=== PATIENT | female | born 1955 | race Caucasian/White ===

== ENCOUNTER → 2016-07-17 | Outpatient (CLI) | payer OTHER ==
[2016-07-17 12:20] LABS: Basophils # (A) 0.1 k/uL (0-0.2); Basophils % (A) 1 %; CH 31.8; CHCM 33.9; Eosinophils # (A) 0.3 k/uL (0-0.7); Eosinophils % (A) 2 %; HCT 45.1 % (34.0-46.0); HDW 2.91; HGB 14.8 gm/dL (11.4-16.0); Luc # (Auto) 0.28; Luc % (Auto) 2; Lymphocytes # (A) 1.4 k/uL (1.0-4.8); Lymphocytes % (A) 11 %; MCH 31.1 pg (25.0-35.0); MCHC 32.9 g/dL (31.0-37.0); MCV 94.7 fL (80.0-100.0); Mean Platelet Volume 9.2; Monocytes # (A) 0.7 k/uL (0-1.0); Monocytes % (A) 6 %; Neutrophils % (A) 79 %; RBC 4.77 m/uL (3.80-5.40); RDW 13.9 % (11.5-15.5); WBC 12.8 k/uL (3.8-10.6)
[2016-07-17 12:26] LABS: Appearance,Urine Cloudy (Clear); Bacteria,Urine Many /hpf; Bilirubin,Urine Negative (Negative); Glucose,Urine (UA) Negative (Negative); Ketones,Urine Negative (Negative); Leukocyte Esterase,Urine Large (Negative); Mucus,Urine Many /hpf; Nitrite,Urine Positive (Negative); Particle Count 23794; Protein,Urine Trace (Negative); Specific Gravity,Urine 1.022 (1.001-1.035); Squamous Epithelial Cell,Urine 2 /hpf (0-4); UA Billing (MACRO vs. MICRO) MICRO; Urobilinogen,Urine <2.0 mg/dL (<2.0); WBC,Urine 80 /hpf (0-5)
[2016-07-17 12:27] LABS: Partial Thromboplastin Time 24.1 sec (22.0-30.0); Prothrombin Time 10.6 sec (9.0-12.0)
[2016-07-17 12:50] LABS: ALT 21 U/L (9-52); AST 20 U/L (14-36); Alkaline Phosphatase 107 U/L (38-126); Anion Gap 13 mmol/L; Blood Urea Nitrogen 15 mg/dL (7-17); Calcium 9.1 mg/dL (8.4-10.2); Carbon Dioxide 25 mmol/L (22-30); Chloride 104 mmol/L (98-107); Cholesterol 169 mg/dL (<200); Creatine Kinase 41 U/L (30-135); Glucose 128 mg/dL (74-99); HDL Cholesterol 50 mg/dL (40-60); Non-African American GFR(MDRD) >60 (>60 ml/min/1.73 sqM); Potassium 4.6 mmol/L (3.5-5.1); Sodium 142 mmol/L (137-145); Total Bilirubin 0.6 mg/dL (0.2-1.3); Total Protein 7.4 g/dL (6.3-8.2); Triglycerides 111 mg/dL (<150); Uric Acid 6.1 mg/dL (3.7-7.4)
[2016-07-17 13:44] LABS: Hemoglobin A1C 5.1 % (4.2-6.1)
== END | disposition home or self-care (01) ==
LOC: LABPAT 11:12
PROVIDERS: ATTEND Orthopaedic Surgery
DX: Z01.818 Encounter for other preprocedural examination (principal); M89.9 Disorder of bone, unspecified; I10 Essential (primary) hypertension; E78.00 Pure hypercholesterolemia, unspecified; Z01.812 Encounter for preprocedural laboratory examination; J45.998 Other asthma
CPT/HCPCS: 80053; 80061; 81001; 82306; 82550; 83036; 84439; 84443; 84550; 85025; 85610; 85730; 87070

== ENCOUNTER 2016-07-27 07:21 | Inpatient (IN) | payer OTHER ==
[2016-07-23 12:16] VITALS: BMI 40.1
[~2016-07-27 07:21] MED LIST: ACETAMINOPHEN TAB 500 MG TAB PO ONE; CLINDAMYCIN 900 MG in DEXTROSE 5% IN WATER 50 ML IVPB ONE; DEXAMETHASONE SOD PHOSPHATE 10 MG/ML 1 ML VIAL IV ONE; HYDROmorphone 1 MG/ML 1 ML SYRINGE IVP PRN; MELOXICAM 7.5 MG TAB PO ONE; MIDAZOLAM 2 MG/2 ML VIAL IV PRN; ONDANSETRON 4 MG/2 ML VIAL IVP ONE; SCOPOLAMINE 1.5MG/72HR PATCH TRANSDERM ONE; TRANEXAMIC ACID 1,000 MG in SODIUM CHLORIDE 0.9% 100 ML IVPB ONE
[2016-07-27] MEDS ORDERED: LIDOCAINE 1% 20 ML VIAL (10MG/ML) FOR IV START INTRADERMA ONE (08:07)
[2016-07-27] MEDS: LACTATED RINGERS 1,000 ML IV SCH (08:09)
[2016-07-27] MEDS ORDERED: MIDAZOLAM 2 MG/2 ML VIAL IVP ONE (08:40)
[2016-07-27] MEDS ORDERED: fentaNYL (PF) 50 MCG/ML 2 ML AMP IV ONE (08:40)
[2016-07-27] MEDS ORDERED: ROPIVACAINE 1,100 MG, SODIUM CHLORIDE 0.9% 330 ML MISCELLANE PRN ×2 (10:05)
--- NOTE | 2016-07-27 10:08 | P.ONQ ---
Anesthesiology Proc Note - PNB - Peripheral Nerve Block Performed Left Adductor Canal Infusion Time Out Performed: Yes Indication: Acute Post-Operative Pain, Analgesia Specifically requested for management of pain by DrGayla: Joshua Nelson Sedation Type: Sedate with meaningful contact maintained Preparation: Sterile Prep Position: Supine Catheter Depth at Skin (cm): 8 Catheter: Indwelling Needle Types: On-Q Needle Size: 100mm (4") Needle Gauge: 20 Technique: Ultrasound Injectate: 0.5% Ropivacaine (see comment for volume) (20 cc) Blood Aspirated: No Pain Paresthesia on Injection Noted: No Resistance on Injection: Normal Events: Uneventful and Well Tolerated
[2016-07-27] MEDS: ROPIVACAINE 246.25 MG, EPINEPHrine 0.5 MG, KETOROLAC 30 MG, cloNIDine HCL/PF 80 MCG, WA... MISCELLANE ONE ×10 (10:25→11:09)
[2016-07-27] MEDS ORDERED: SODIUM CHLORIDE 0.9% 100 ML BAG ONE (10:35)
[2016-07-27] MEDS ORDERED: fentaNYL (PF) 50 MCG/ML 2 ML AMP ONE (10:35)
[2016-07-27] MEDS ORDERED: MIDAZOLAM 2 MG/2 ML VIAL ONE (10:35)
[2016-07-27] MEDS ORDERED: PROPOFOL 10 MG/ML 20 ML VIAL IV ONE (10:35)
[2016-07-27] MEDS ORDERED: TRANEXAMIC ACID 1,000 MG/10 ML VIAL ONE (10:35)
[2016-07-27] MEDS ORDERED: LACTATED RINGERS 1,000 ML IV ONE (11:28)
[2016-07-27] MEDS ORDERED: HYDROmorphone 1 MG/ML 1 ML SYRINGE IVP PRN ×3 (12:33)
[2016-07-27] MEDS ORDERED: NALOXONE 0.4 MG/ML 1 ML VIAL IV PRN (12:33)
[2016-07-27] MEDS ORDERED: hydrOXYzine PAMOATE 25 MG CAP PO PRN (12:33)
[2016-07-27] MEDS ORDERED: DIAZEPAM 5 MG TAB PO PRN ×2 (12:33)
[2016-07-27] MEDS ORDERED: ONDANSETRON 4 MG/2 ML VIAL IVP PRN (12:33)
[2016-07-27] MEDS ORDERED: HYDROcodone/APAP 5-325MG 1 EACH TAB PO PRN ×2 (12:33)
[2016-07-27] MEDS ORDERED: MAGNESIUM HYDROXIDE 2,400 MG/10 ML CUP PO PRN (12:33)
--- NOTE | 2016-07-27 13:13 | XR ---
EXAMINATION TYPE: XR knee limited LT DATE OF EXAM: 07/27/2016 1:08 PM CLINICAL HISTORY: Postoperative evaluation Two views of the left knee are submitted. Identified are changes of total knee arthroplasty with fem oral and tibial components appearing well seated. Postsurgical soft tissue changes are noted. Align ment is anatomic.
--- NOTE | 2016-07-27 16:46 | P.CONS ---
History of Present Illness - Reason for Consult Consult date: 07/27/16 medical management Requesting physician: Joshua Nelson - History of Present Illness this 61-year-old pleasant lady patient of Dr. Denton, she has underlying history of seasonal asthma mild intermittent, hypertension, ALLERGIC rhinitis, depression and hyperlipidemia admitted to the service of Dr. Nelson for a left total knee arthroplasty performed on 07/27/2016, patient's doing well without any difficulties, no posterior free pain and nausea vomiting, he does have an On-Q pain pump on board. Patient denies any chest pressure or shortness of breath. She is receiving Coumadin for DVT prophylaxis, instructions were also given for incentive spirometry use Review of Systems Constitutional: Reports as per HPI, Denies anorexia, Denies chills, Denies chronic headaches, Denies chronic pain, Denies daytime sleepiness, Denies fatigue, Denies fever, Denies lethargy, Denies malaise, Denies night sweats, Denies poor appetite, Denies sweats, Denies weakness, Denies weight gain, Denies weight loss Ears, nose, mouth and throat: Reports as per HPI, Denies ant. neck pain, Denies bleeding gums, Denies dental pain, Denies dysphagia, Denies epistaxis, Denies headache, Denies hoarseness, Denies mouth pain, Denies nasal congestion, Denies nasal discharge, Denies neck fullness/pressure, Denies neck lump, Denies nose pain, Denies odynophagia, Denies post-nasal drip, Denies sinus pain, Denies sinus pressure, Denies swelling in mouth, Denies swelling in throat, Denies sore throat, Denies vertigo, Denies voice changes Cardiovascular: Reports as per HPI, Denies chest pain, Denies claudication, Denies decreased exercise tolerance, Denies dyspnea on exertion, Denies edema, Denies high blood pressure, Denies irregular heart beat, Denies leg edema, Denies lightheadedness, Denies orthopnea, Denies palpitations, Denies paroxysmal nocturnal dyspnea, Denies phlebitis, Denies rapid heart beat, Denies shortness of breath, Denies syncope Respiratory: Reports as per HPI, Denies congestion, Denies cough, Denies cough with sputum, Denies dyspnea, Denies excessive sputum, Denies hemoptysis, Denies home oxygen, Denies pain, Denies pain on inspiration, Denies pleurisy, Denies respiratory infections, Denies sleep apnea, Denies snoring, Denies wheezing Gastrointestinal: Reports as per HPI, Denies abdominal pain, Denies belching, Denies bloating, Denies BRBPR, Denies change in bowel habits, Denies coffee ground emesis, Denies constipation, Denies diarrhea, Denies dyspepsia, Denies early satiety, Denies excessive gas, Denies heartburn, Denies hematemesis, Denies hematochezia, Denies indigestion, Denies jaundice, Denies lactose intolerance, Denies loss of appetite, Denies melena, Denies nausea, Denies vomiting Genitourinary: Reports as per HPI, Denies abnormal vaginal bleeding, Denies decreased libido, Denies difficulty conceiving, Denies difficulty voiding, Denies dysmenorrhea, Denies dyspareunia, Denies dysuria, Denies flank pain, Denies genital sores, Denies hematuria, Denies hot flashes, Denies incomplete emptying, Denies kidney stones, Denies menorrhagia, Denies mixed incontinence, Denies nocturia, Denies pelvic pain, Denies post void dribbling, Denies , Denies prolapse symptoms, Denies stress incontinence, Denies urge incontinence , Denies urgency, Denies urinary frequency, Denies vaginal discharge, Denies vaginal dryness, Denies vaginal itching, Denies vaginal odor Menstruation: Reports as per HPI, Denies amenorrhea, Denies amenorrhea on BC, Denies currently menstrual, Denies cycle < 21 days, Denies cycle > 35 days, Denies cycle variable, Denies menses 1-7 days, Denies menses 8 or > days, Denies menses variable, Denies period heavy, Denies period light, Denies period normal, Denies period spotting, Denies post hysterectomy, Denies postmenopausal , Denies premenarcheal Musculoskeletal: Reports as per HPI, Denies arm numbness/tingling, Denies atrophy, Denies fractures, Denies frequent falls, Denies gait dysfunction, Denies hot joints, Denies leg numbness/tingling, Denies limitation of motion, Denies loss of height, Denies low back pain, Denies morning stiffness, Denies muscle cramps, Denies muscle weakness, Denies myalgias, Denies neck pain, Denies neck stiffness, Denies prior amputations, Denies redness of joints, Denies shooting arm pain, Denies shooting leg pain Musculoskeletal: left: knee pain, bilateral: ankle pain, absent: ankle stiffness , ankle swelling, as per HPI, elbow pain, elbow stiffness, elbow swelling Integumentary: Reports as per HPI, Denies acne, Denies boils, Denies brittle nails, Denies change in hair/nails, Denies color changes, Denies darkening of skin, Denies depigmentation, Denies dryness, Denies foot/leg ulcers, Denies growths, Denies hirsutism, Denies lesions, Denies onychomycosis, Denies pruritus , Denies rash, Denies sores, Denies striae, Denies unusual bruising, Denies wounds Neurological: Reports as per HPI, Denies aphasia, Denies ataxia, Denies balance difficulties, Denies burning pain, Denies change in mentation, Denies change in smell/taste, Denies change in speech, Denies confusion, Denies convulsions, Denies double vision, Denies gait dysfunction, Denies head injury, Denies headaches, Denies hearing difficulties, Denies lack of coordination, Denies loss of vision, Denies memory loss, Denies migraines, Denies motor disturbance, Denies numbness, Denies paralysis, Denies paresthesias, Denies seizures, Denies sensory deficit, Denies spasticity, Denies syncope, Denies tic, Denies tingling , Denies transient paralysis, Denies tremors, Denies vertigo, Denies weakness, Denies visual changes Psychiatric: Reports as per HPI, Denies anhedonia, Denies anxiety, Denies anxiety attacks, Denies change in appetite, Denies change in libido, Denies change in sleep habits, Denies confusion, Denies depression, Denies difficulty concentrating, Denies disorientation, Denies hallucinations, Denies hopelessness , Denies hypersomnia, Denies insomnia, Denies irritability, Denies memory loss, Denies mood swings, Denies paranoia, Denies sadness/tearfulness, Denies sleep disturbances, Denies suicidal ideation Endocrine: Reports as per HPI, Denies cold intolerance, Denies deepening of the voice, Denies excessive sweating, Denies excessive thirst, Denies fatigue, Denies flushing, Denies heat intolerance, Denies high blood sugars, Denies increase in ring/shoe/hat size, Denies low blood sugars, Denies nocturia, Denies palpitations, Denies polydipsia, Denies polyphagia, Denies polyuria, Denies proptosis, Denies recent glucocorticoid use, Denies thyroid mass, Denies weight change Hematologic/Lymphatic: Reports as per HPI, Denies easy bleeding, Denies easy bruising, Denies lymphadenopathy, Denies lymphedema, Denies thrombophilia Allergic/Immunologic: Reports as per HPI, Denies allergic rhinitis, Denies anaphylaxis, Denies angioedema, Denies gluten intolerance, Denies persistent infections, Denies seasonal allergies, Denies urticaria, Denies wheezing Past Medical History Past Medical History: Asthma, Hypertension, Osteoarthritis (OA) Additional Past Medical History / Comment(s): ONLY HAS RIGHT KIDNEY History of Any Multi-Drug Resistant Organisms: None Reported Additional Past Surgical History / Comment(s): REMOVAL LEFT KIDNEY, RIGHT AND LEFT FOOT ,BILATERAL CARPAL RELEASE Past Anesthesia/Blood Transfusion Reactions: Motion Sickness Past Psychological History: Anxiety, Depression Smoking Status: Never smoker Past Alcohol Use History: None Reported Past Drug Use History: None Reported - Past Family History Sister(s) Family Medical History: Cancer, Coronary Artery Disease (CAD) Additional Family Medical History / Comment(s): BREAST CANCER Brother(s) Family Medical History: Cancer, Coronary Artery Disease (CAD) Additional Family Medical History / Comment(s): BRAIN CANCER Medications and Allergies Home Medications Medication Instructions Recorded Confirmed Type Nebivolol HCl [Bystolic] 20 mg PO DAILY 07/23/16 07/27/16 History Sertraline [Zoloft] 100 mg PO DAILY 07/23/16 07/27/16 History buPROPion HCL [Wellbutrin XL] 300 mg PO DAILY 07/23/16 07/27/16 History Ciprofloxacin HCl [Cipro] 250 mg PO Q12HR 07/24/16 07/27/16 History Allergies Allergy/AdvReac Type Severity Reaction Status Date / Time adhesive tape Allergy Rash/Hives Verified 07/23/16 11:14 [email or web address] [From Omnicef] Allergy Swelling, Verified 07/23/16 11:14 LIPS AND THROAT Physical Exam Vitals: Vital Signs Temp Pulse Resp BP Pulse Ox 07/27/16 15:45 82 115/64 07/27/16 15:30 86 116/58 07/27/16 15:15 91 130/68 07/27/16 15:00 86 116/55 07/27/16 14:45 86 106/59 07/27/16 14:30 84 114/50 07/27/16 14:15 87 113/57 07/27/16 14:00 84 126/61 07/27/16 13:45 98.0 F 85 17 116/56 96 07/27/16 13:19 84 16 107/57 96 07/27/16 13:04 82 16 112/61 95 07/27/16 12:51 82 16 110/60 95 07/27/16 12:36 97.4 F L 90 14 126/60 93 L 07/27/16 08:02 97.7 F 77 16 129/69 99 Intake and Output 07/27/16 07/27/16 07/27/16 06:59 14:59 22:59 Intake Total 2005 Output Total 50 Balance 1955 Intake: IV 2005 Output: Estimated Blood Loss 50 Other: Weight 116.12 kg Patient Weight 07/28/16 06:59 Weight 116.12 kg - Constitutional General appearance: no average body habitus, cooperative, no disheveled, no mild distress, no morbidly obese, no acute distress, obese, no severe distress, no thin - EENT Eyes: no abnormal pupil, anicteric sclerae, no disc margins sharp, no edentulous , no EOMI, no PERRLA, no fundus normal, no photophobia, dentition normal, no poor dentition, no ptosis, no scleral icterus, normal appearance ENT: no hard of hearing, hearing grossly normal, NA/AT, normal oropharynx, no other, no pharyngeal erythema, no thrush, no tonsillar exudates, no tonsillar swelling - Neck Neck: no lymphadenopathy, normal ROM, no other, no rigidity, no stridor, no thyromegaly - Cardiovascular Rhythm: regular Heart sounds: normal: S1, S2 Abnormal Heart Sounds: no systolic murmur, no diastolic murmur, no rub, no S3 Gallop, no S4 Gallop, no click, no other - Gastrointestinal General gastrointestinal: normal bowel sounds, soft - Integumentary Integumentary: normal, normal turgor - Neurologic Neurologic: CNII-XII intact - Musculoskeletal Musculoskeletal: gait normal, strength equal bilaterally - Psychiatric Psychiatric: A&O x's 3, appropriate affect, intact judgment & insight Assessment and Plan Plan: 1. Left total knee arthroplasty performed on 07/26/2016, patient's doing well clinically she is to receive Coumadin for DVT prophylaxis, incentive spirometry program, and narcotics for pain pain control,were anticipating her discharge to home with physical therapies with family members 2. Hypertension currently normotensive with slight fluctuation, patient is on by bystolic 20 mg daily 3. ALLERGIC rhinitis stable 4. Depression on Wellbutrin and Zoloft no changes were made 5. BMI of 40 6 Hyperlipidemia not on any medications DVT and GI luminaryprophylaxis on Coumadin Pepcid ,bowel regimen for constipation, incentive spirometry thank you Dr. Nelson in allowing us to precipitate a careof your Patient, we are going to follow him during this current hospital stay. Recommendations made this treatment based on his clinical progress, patient's clinically stable.
[2016-07-27] MEDS: CLINDAMYCIN 900 MG in DEXTROSE 5% IN WATER 50 ML IVPB SCH ×4 (17:37→23:21)
[2016-07-27] MEDS ORDERED: WARFARIN 5 MG TAB PO ONE (18:00)
--- NOTE | 2016-07-27 19:07 | P.OP ---
Date of Procedure: 07/27/16 Preoperative Diagnosis: Severe osteoarthritis left knee Postoperative Diagnosis: Severe osteoarthritis left knee Procedure(s) Performed: Left total knee arthroplasty Implants: Gong [employer]hew Oxinium femoral component size 5 narrow, left G[employer]hew Nathaly II left nonporous tibial baseplate size 3 G[employer]hew size 9 mm Legion XLPE dished articular insert, size 3-4 [employer] Nathaly II resurfacing patellar component, 32 mm All components were cemented using Raina bone cement.. The articulation is ceramic on polyethylene. Anesthesia: spinal Surgeon: Joshua Nelson Corporate Recruiter #1: Jazmyn Bridges Estimated Blood Loss (ml): 50 Pathology: other (Bone and cartilage) Condition: stable Disposition: PACU Indications for Procedure: After failure of conservative treatment we discussed the surgical and nonsurgical treatment options at length. Patient wishes to proceed with a total knee arthroplasty. Complications specific to this procedure were discussed at length, including but not limited to infection, bleeding, stiffness , and nerve injury. Patient is aware of all these complications and informed consent was obtained Operative Findings: The operative findings are consistent with severe osteoarthritis of the left knee Description of Procedure: Patient was seen in the preoperative area consent was reviewed and operative site was marked with a skin marker. An adductor canal pain catheter was placed by anesthesia in the preoperative area. Patient was then brought to the operating room and given preoperative antibiotics intravenously. A spinal anesthetic was administered by the anesthesia department. A tourniquet was placed on the upper thigh and the lower extremity was prepped and draped in usual sterile fashion. A gram of transexamic acid was given. A universal timeout was then performed which confirmed the patient's name, surgical site, ALLERGIES, and consent. The lower extremity was then exsanguinated and tourniquet was inflated to 250 mmHg. A standard and anterior midline approach to the knee was performed. The skin and subcutaneous tissue was dissected down to the patellar tendon. A medial parapatellar arthrotomy was then performed. The knee was then extended, the patellar was everted, and the knee was again flexed. Anterior horns of both menisci were excised, and a release was performed to the posterior medial aspect of the knee. On gross visual inspection, there was complete loss of articular cartilage in the medial and patellofemoral joint spaces. There was also significant cartilage damage in the lateral compartment. There were multiple periarticular osteophytes which were then removed with a Ronguer. The femoral canal was then opened with the appropriate drill, and the intramedullary femoral cutting guide was then placed and set for 4 of valgus. The distal femoral cutting block was then pinned in place, and the distal femur was then cut. The cutting block was then removed and the cut was checked for flatness. Next, the sizing guide was then placed and set for 3 external rotation based off of the epicondylar axis and Whitesides line. After the femur was sized, the appropriate 4-in-1 cutting block was then pinned in place. The anterior condyles were cut without notching. The posterior and chamfer cuts were performed while protecting the collateral ligaments. The cutting block was then removed, and the femoral canal was plugged with autologous bone. Attention was then directed to the tibia. The remaining ACL was removed with a Ronguer, and the tibia was then gently subluxed forward with a large bent knee retractor. Any remaining menisci was excised. The posterior lateral corner was cauterized in order to cauterize the lateral geniculate artery. The extra medullary tibial cutting guide was then placed, set for the appropriate rotation , slope, and depth of resection. The proximal tibia cutting guide was then pinned in place. Proximal tibia was then cut and sized. Next trials were then placed with the appropriate-sized insert. The knee was able to fully extend and flex to 130 and was stable throughout all range of motion. The knee was then extended, patella everted. Patella was then measured, and then using an osteotomy guide, the patella was cut at the appropriate level. The patella was then measured and drilled and the patella trial was then placed. The knee was then taken through range of motion with the patella trial and the patella tracked normally. The knee was then extended patella trial was then removed and the patella was everted. Knee was then flexed and lug holes were drilled through the femoral trial and the femoral trial was then removed. The tibial was then exposed, and the tibial broach guide was then pinned in place after it was set for the appropriate rotation to allow for the most coverage without overhang. The tibia was then reamed and broached. The cut surfaces of bone were then irrigated with pulsatile lavage. The posterior structures were injected with the ropivacaine solution. The knee was also irrigated with Irrisept solution. The components were then opened, the cement was mixed, and the components were then cemented in place. The cement was allowed to harden with the knee in full extension. While the cement was hardening, the remaining soft tissues were then injected with a ropivacaine solution, which consisted of 246.25 mg of ropivacaine, 0.5 mg of epinephrine, 30 mg of Toradol, 80 g of clonidine, and 48.45 mL of sterile water, for a total of 100 mL of fluid injected. After the cemented hardened. The tourniquet was released, and hemostasis was obtained. A second gram of transexamic acid was given. The knee was again irrigated. The knee was again taken through range of motion and found to be stable throughout all range of motion of 0-130 , and the patella tracked normally. The fascia was then closed with #2 strata fix suture. The subcutaneous tissue was closed with 3-0 Vicryl and 3-0 strata fix. Dermabond tape was used for the skin and placed with the knee in flexion. The patient was placed in a sterile dressing. Patient was then transferred to recovery room in stable condition. The fast food sales assistant BARAK Chao was required due the complexity surgery and the need for a skilled accountant assistant. She assisted in positioning, draping , retraction, and closure of the wound.
[2016-07-27] MEDS: SODIUM CHLORIDE 0.9% 1,000 ML IV SCH ×2 (20:29→21:24)
[2016-07-27] MEDS ORDERED: SENNOSIDES-DOCUSATE SODIUM 1 EACH TAB PO SCH (21:00)
[2016-07-27] MEDS: ACETAMINOPHEN TAB 325 MG TAB PO PRN ×2 (21:25→21:42)
[2016-07-28 00:59] VITALS: RESP 16
[2016-07-28] MEDS: LACTATED RINGERS 1,000 ML IV SCH (05:29)
[2016-07-28 07:43] LABS: Basophils % (A) 0 %; CH 31.5; Eosinophils # (A) 0.1 k/uL (0-0.7); Eosinophils % (A) 1 %; HCT 37.3 % (34.0-46.0); HDW 2.85; HGB 11.9 gm/dL (11.4-16.0); Luc # (Auto) 0.36; Luc % (Auto) 3; Lymphocytes # (A) 1.5 k/uL (1.0-4.8); Lymphocytes % (A) 14 %; MCH 30.8 pg (25.0-35.0); MCV 96.2 fL (80.0-100.0); Monocytes # (A) 0.6 k/uL (0-1.0); Monocytes % (A) 6 %; Neutrophils % (A) 76 %; RBC 3.88 m/uL (3.80-5.40); RDW 14.1 % (11.5-15.5); WBC 10.5 k/uL (3.8-10.6); WBC (Perox) 11.35
[2016-07-28 07:48] LABS: INR 1.3 (<1.1); Prothrombin Time 12.9 sec (9.0-12.0)
[2016-07-28 07:52] VITALS: BP 109/65; PULSE 61; TEMP 98
[2016-07-28] MEDS ORDERED: SERTRALINE 100 MG TAB PO SCH (09:00)
[2016-07-28] MEDS ORDERED: NEBIVOLOL 5 MG TAB PO SCH (09:00)
[2016-07-28] MEDS ORDERED: MELOXICAM 7.5 MG TAB PO SCH (09:00)
[2016-07-28] MEDS ORDERED: buPROPion XL 300 MG TAB.ER.24H PO SCH (09:00)
--- NOTE | 2016-07-28 09:33 | P.PN ---
Progress Note - Text 0810. Anesthesia. POD 1. Patient is status post left TKR under spinal anesthesia with a left sided adductor canal catheter placed for postoperative pain relief. When the patient was seen this morning she had just finished physical therapy was in good spirits with a pleasant affect. Currently the ropivacaine infusion through the adductor canal catheter is at 8 mL per hour. The posterior aspect of the knee joint was infiltrated with ropivacaine intraoperatively. VAS equals 3, 6 and is similar all-around the knee joint. We will reevaluate the patient tomorrow and expect a marketed difference between the anterior and posterior aspects of the knee in terms of pain relief. Adductor canal dressing is clean dry and intact.
--- NOTE | 2016-07-28 10:24 | P.DS ---
Providers Date of admission: 07/27/16 07:21 Expected date of discharge: 07/28/16 Attending physician: Joshua Nelson Consults: 07/27/16 12:33 Consult Physician Routine Consulting Provider: Eric Denton Consult Reason/Comments: medical management Do you want consulting provider notified?: Yes Primary care physician: Eric Denton - Discharge Diagnosis(es) (1) Primary osteoarthritis of left knee Current Visit: Yes Status: Acute (2) Status post total left knee replacement Current Visit: Yes Status: Acute Hospital Course: This is a 61-year-old female who was last seen with complaint of continued left knee pain. The patient has a known history of degenerative arthritis of the left knee and presents to discuss surgical options. After discussion and consideration the patient elects to proceed with total left knee arthroplasty. The patient is seen preoperatively by her family physician and cleared for surgery. The patient is admitted to [facility] for total left knee arthroplasty. The procedures performed without complication or sequelae. He is doing well postoperatively. Vital signs are stable at discharge. Labs are stable at discharge. the patient is ambulating well with walker with minimal assistance. The patient is discharged to home on postop day #1 pending medical clearance. Please see orders and refer to the med rec for accurate list of medications. Plan - Discharge Summary New Discharge Prescriptions: HYDROcodone/APAP 5-325MG [[place] 5-325] 1 - 2 each PO Q4-6H PRN #90 tab PRN Reason: Pain Sennosides-Docusate Sodium [Senokot-S] 1 tab PO BID #60 tablet Warfarin [Coumadin] 2.5 mg PO DAILY #1 tab Discharge Medication List Nebivolol HCl [Bystolic] 20 mg PO DAILY 07/23/16 [History] Sertraline [Zoloft] 100 mg PO DAILY 07/23/16 [History] buPROPion HCL [Wellbutrin XL] 300 mg PO DAILY 07/23/16 [History] Ciprofloxacin HCl [Cipro] 250 mg PO Q12HR 07/24/16 [History] HYDROcodone/APAP 5-325MG [[place] 5-325] 1 - 2 each PO Q4-6H PRN #90 tab 07/28/16 [Rx] Sennosides-Docusate Sodium [Senokot-S] 1 tab PO BID #60 tablet 07/28/16 [Rx] Warfarin [Coumadin] 2.5 mg PO DAILY #1 tab 07/28/16 [Rx] Follow up Appointment(s)/Referral(s): Joshua Nelson DO [Doctor of Osteopathic Medicine] - 2 Weeks Ambulatory/Diagnostic Orders: Continuous Passive Motion (CPM) Machine [DME.AMB1] Time Frame: 3 Weeks, Facility : [facility] Location: Case Management Prothrombin Time INR [LAB.AMB] Location: Determined By Patient Activity/Diet/Wound Care/Special Instructions: May bear weight as tolerated with walker. May shower if no drainage from incision. CPM 5-6 hours daily. Discharge Disposition: HOME WITH HOME HEALTH SERVICES
--- NOTE | 2016-07-28 13:00 | P.PN ---
Subjective Principal diagnosis: 1 post left total knee arthroplasty, hypertension, depression, anticoagulation, recent UTI. this 61-year-old pleasant lady patient of Dr. Denton, she has underlying history of seasonal asthma mild intermittent, hypertension, ALLERGIC rhinitis, depression and hyperlipidemia admitted to the service of Dr. Nelson for a left total knee arthroplasty performed on 07/27/2016, patient's doing well without any difficulties, no posterior free pain and nausea vomiting, he does have an On-Q pain pump on board. Patient denies any chest pressure or shortness of breath. She is receiving Coumadin for DVT prophylaxis, instructions were also given for incentive spirometry use. 07/28/2016: Patient is feeling much better and bleeding well pain is well controlled, continue anticoagulation with 2.5, for friend daily, INR has been subtherapeutic still with no need to adjust the dose at this point. Patient had finished her treatment for UTI and UA has been negative so far. She has done so well with physical therapy and was able to do the stairs today and she is going home today. Objective - Vital Signs Vital signs: Vital Signs Temp 98 F 07/28/16 07:00 Pulse 61 07/28/16 07:00 Resp 16 07/28/16 07:00 BP 109/65 07/28/16 07:00 Pulse Ox 97 07/28/16 07:00 Intake & Output 07/27/16 07/28/16 07/28/16 18:59 06:59 18:59 Intake Total 2296 Output Total 450 Balance 1846 Weight 116.12 kg Intake: IV 2056 Sodium Chloride 0.9% 1, 50 000 ml @ 100 mls/hr IV . Q10H [facility] Rx#:[id number] Oral 240 Output: Urine 400 Estimated Blood Loss 50 Other: Voiding Method Toilet # Voids 1 - Constitutional General appearance: Present: cooperative, no acute distress. Absent: average body habitus, disheveled, mild distress, morbidly obese, obese, severe distress , thin - EENT Eyes: Present: normal appearance. Absent: abnormal pupil, anicteric sclerae, disc margins sharp, edentulous, EOMI, PERRLA, fundus normal, photophobia, dentition normal, poor dentition, ptosis, scleral icterus ENT: Present: normal oropharynx. Absent: hard of hearing, hearing grossly normal, NA/AT, other, pharyngeal erythema, thrush, tonsillar exudates, tonsillar swelling Ears: bilateral: normal - Neck Neck: Present: normal ROM. Absent: lymphadenopathy, other, rigidity, stridor, thyromegaly Carotids: bilateral: upstroke normal Thyroid: bilateral: normal size - Respiratory Respiratory: bilateral: CTA, diminished - Cardiovascular Rhythm: regular Heart sounds: normal: S1, S2 Abnormal Heart Sounds: Present: systolic murmur, S3 Gallop - Gastrointestinal General gastrointestinal: Present: distended, soft. Absent: absent bowel sounds , decreased bowel sounds, hepatomegaly, hyperactive bowel sounds, normal bowel sounds, organomegaly, rigid, scaphoid, splenomegaly, tenderness, umbilical hernia, ventral hernia - Integumentary Integumentary Comment(s): Incision looks fine no induration or redness no cold for thigh tenderness no warmness no sign of infection. Integumentary: Present: pale, rash. Absent: calor, cellulitis, cyanotic, decreased turgor, flushed, jaundiced, normal, normal turgor, ulcer - Neurologic Neurologic: Present: CNII-XII intact - Musculoskeletal Musculoskeletal: Present: gait normal, generalized weakness, strength equal bilaterally. Absent: right sided weakness, left sided weakness - Psychiatric Psychiatric: Present: A&O x's 3, appropriate affect. Absent: intact judgment & insight - Labs CBC & Chem 7: 07/28/16 07:05 Labs: Abnormal Lab Results - Last 24 Hours (Table) 07/28/16 07/28/16 Range/Units 07:05 07:05 Neutrophils # 8.0 H (1.3-7.7) k/uL PT 12.9 H (9.0-12.0) sec Assessment and Plan Plan: 1. Left total knee arthroplasty performed on 07/26/2016, patient's doing well clinically she is to receive Coumadin for DVT prophylaxis, incentive spirometry program, and narcotics for pain pain control,were anticipating her discharge to home with physical therapies with family members 2. Hypertension currently well controlled with bystolic 20 mg daily. 3. ALLERGIC rhinitis stable, if needed can use Claritin or Zyrtec as needed. 4. Depression on Wellbutrin and Zoloft no changes were made 5. BMI of 40. 6 Hyperlipidemia not on any medications. 7 anticoagulation: Patient is on warfarin 2.5 mg a day we'll continue medication for total of 2-4 weeks. INR be done weekly. Discharge planning: Patient is going home today.
== END 2016-07-28 15:07 | disposition home health service (06) | DRG 470 ==
LOC: 2ORMAIN 07:21 → 3SUR 12:36
PROVIDERS: ADMIT Orthopaedic Surgery; ATTEND Orthopaedic Surgery
PROC: 0SRD0J9 Replacement of Left Knee Joint with Synthetic Substitute, Cemented, Open Approach (ICD-10-PCS; principal; 2016-07-27 09:40)
DX: M17.12 Unilateral primary osteoarthritis, left knee (principal); I10 Essential (primary) hypertension; F32.9 Major depressive disorder, single episode, unspecified; E78.5 Hyperlipidemia, unspecified; J45.20 Mild intermittent asthma, uncomplicated; Z82.49 Family history of ischemic heart disease and other diseases of the circulatory system; Z79.899 Other long term (current) drug therapy
CPT/HCPCS: 85025; 85610; 88300

== ENCOUNTER 2017-12-27 10:23 | Day surgery (SDC) | payer OTHER ==
[2017-12-25 15:31] VITALS: BMI 40.7
[~2017-12-27 10:23] MED LIST changes: -ACETAMINOPHEN TAB 500 MG TAB PO ONE; -CLINDAMYCIN 900 MG in DEXTROSE 5% IN WATER 50 ML IVPB ONE; -DEXAMETHASONE SOD PHOSPHATE 10 MG/ML 1 ML VIAL IV ONE; -HYDROmorphone 1 MG/ML 1 ML SYRINGE IVP PRN; +LACTATED RINGERS 1,000 ML IV SCH; -MELOXICAM 7.5 MG TAB PO ONE; -MIDAZOLAM 2 MG/2 ML VIAL IV PRN; -ONDANSETRON 4 MG/2 ML VIAL IVP ONE; -SCOPOLAMINE 1.5MG/72HR PATCH TRANSDERM ONE; -TRANEXAMIC ACID 1,000 MG in SODIUM CHLORIDE 0.9% 100 ML IVPB ONE
[2017-12-27 10:49] VITALS: RESP 16; TEMP 98.1
[2017-12-27] MEDS ORDERED: LIDOCAINE 1% 20 ML VIAL (10MG/ML) FOR IV START INTRADERMA ONE (10:52)
[2017-12-27] MEDS ORDERED: PROPOFOL 10 MG/ML 20 ML VIAL IV ONE (11:55)
--- NOTE | 2017-12-27 12:09 | P.PCN ---
Date of Procedure: 12/27/17 Procedure(s) Performed: BRIEF HISTORY: Patient is a 62-year-old pleasant white female, scheduled for an elective colonoscopy as a part of evaluation of prior history of colon polyps. PROCEDURE PERFORMED: Colonoscopy with biopsy. PREOPERATIVE DIAGNOSIS: History of Colon polyps. IV sedation per Anesthesia. PROCEDURE: After informed consent was obtained, the patient, was brought into the endoscopy unit. IV sedation was administered by Anesthesia under continuous monitoring. Digital rectal examination was normal. Initially the Olympus CF- 160 flexible video colonoscope was then inserted in the rectum, gradually advanced into the cecum without any difficulty. Careful examination was performed as the scope was gradually being withdrawn. Ileocecal valve and the appendiceal orifice were visualized and appeared normal. Prep was excellent. Mucosa of the cecum, ascending colon, transverse colon, descending colon, sigmoid colon, and rectum appeared normal. In the distal sigmoid colon there was a 2-3 mm sessile polyp that was removed by biopsy. Retroflexion was performed in the rectum and no lesions were seen. The patient tolerated the procedure well. IMPRESSION: After a 3 mm sigmoid colon polyp status post removal by cold biopsy Rest of the colon appeared normal RECOMMENDATIONS: Findings of this examination were discussed with the patient as her family. She was advised to follow with the biopsy results. She can have a repeat surveillance colonoscopy in 5 years.
[2017-12-27 12:30] VITALS: BP 126/67; PULSE 67
== END 2017-12-27 12:57 | disposition home or self-care (01) ==
LOC: ORWHC2ENDO 10:23
PROVIDERS: ATTEND Internal Medicine Gastroenterology
DX: K63.5 Polyp of colon (principal); I10 Essential (primary) hypertension; M19.90 Unspecified osteoarthritis, unspecified site; Z86.010 Personal history of colon polyps; Z79.899 Other long term (current) drug therapy; Z88.3 Allergy status to other anti-infective agents; Z91.048 Other nonmedicinal substance allergy status
CPT/HCPCS: 88305; 45380; J2704

== ENCOUNTER → 2018-01-15 | Outpatient (CLI) | payer OTHER ==
--- NOTE | 2018-01-16 11:54 | BD ---
EXAMINATION TYPE: Axial Bone Density DATE OF EXAM: 01/15/2018 COMPARISON: NONE CLINICAL HISTORY: Height: 67 Weight: 266.5 FRAX RISK QUESTIONS: Alcohol (3 or more units per day): no Family History (Parent hip fracture): no Glucocorticoids (More than 3mos): no (Ex: prednisone, prednisolone, methylprednisolone, dexamethasone, and hydrocortisone). History of Fracture in Adulthood: no Secondary Osteoporosis: 1. Type 1 Diabetes: no 2. Hyperthyroidism: no 3. Menopause before 45: no 4. Malnutrition: no 5. Chronic liver disease: no Rheumatoid Arthritis: no Current Tobacco Use: no RISK FACTORS HISTORY OF: Family History of Osteoporosis: yes mother Active: sometimes Diet low in dairy products/other sources of calcium: yes Postmenopausal woman: late 50s Lost more than 2 inches in height since high school: no MEDICATIONS: biostolic Additional History: EXAM MEASUREMENTS: Bone mineral densitometry was performed using the [employer] App System. Bone mineral density as measured about the Lumbar spine is: ----- L1-L4(G/cm2): 1.312 T Score Values are as follows: ----- L2: 0.6 ----- L3: 1.8 ----- L4: 1.4 ----- L1-L4: 1.1 Bone mineral density has: decreased -1.8 % since study of: 06.02.2012 Bone mineral density about the R hip (g/cm2): 0.982 Bone mineral density about the L hip (g/cm2): 0.982 T Score values are as follows: -----R Neck: -0.4 -----L Neck: -0.4 -----R Total: 0.2 -----L Total: 0.4 Bone mineral density has: increased1.3 % since study of: 06.02.2012 IMPRESSION: Normal (Values between +1 and -1 indicate normal bone mass). Consider repeating this study in 5 year s or sooner if there is some new clinical indication. NOTE: T-SCORE=SD OF THE YOUNG ADULT MEAN.
--- NOTE | 2018-01-16 15:00 | MM ---
Reason for exam: screening (asymptomatic). Last mammogram was performed 2 years and 2 months ago. History: Patient is postmenopausal. Family history of premenopausal breast cancer in sister at age 30. Physical Findings: A clinical breast exam by your physician is recommended on an annual basis and results should be correlated with mammographic findings. MG Screening Mammo w CAD Bilateral CC and MLO view(s) were taken. Prior study comparison: November 10, 2015, bilateral MG screening mammo w CAD. October 15, 2014, bilateral MG screening mammo w CAD. There are scattered fibroglandular densities. Asymmetric breast tissue subareolar left breast. This finding is changed when compared with previous exams. ASSESSMENT: Incomplete: need additional imaging evaluation, BI-RAD 0 RECOMMENDATION: Special view mammogram of the left breast. If lesion persists on supplemental views, image directed ultrasound is recommended. [facility] will attempt to contact patient to return for supplemental views and ultrasound if indicated.
== END | disposition home or self-care (01) ==
LOC: RADMAMWWP 15:15
PROVIDERS: ATTEND Internal Medicine
DX: Z12.31 Encounter for screening mammogram for malignant neoplasm of breast (principal); M89.9 Disorder of bone, unspecified
CPT/HCPCS: 77067; 77080

== ENCOUNTER → 2018-01-21 | Outpatient (CLI) | payer OTHER ==
--- NOTE | 2018-01-22 10:30 | MM ---
Reason for exam: additional evaluation requested from abnormal screening. Last mammogram was performed less than 1 month ago. History: Patient is postmenopausal. Family history of premenopausal breast cancer in sister at age 30. Physical Findings: Nurse did not find any significant physical abnormalities on exam. MG Work Up Mamm w CAD LT CC and MLO view(s) were taken of the left breast. Prior study comparison: January 15, 2018, bilateral MG screening mammo w CAD. November 10, 2015, bilateral MG screening mammo w CAD. There are scattered fibroglandular densities. The questioned focal asymmetry does not persist. These results were verbally communicated with the patient and result sheet given to the patient on 01/21/18. ASSESSMENT: Negative, BI-RAD 1 RECOMMENDATION: Return to routine screening mammogram schedule for both breasts.
== END | disposition home or self-care (01) ==
LOC: RADMAMWWP 14:41
PROVIDERS: ATTEND Internal Medicine
DX: R92.8 Other abnormal and inconclusive findings on diagnostic imaging of breast (principal)
CPT/HCPCS: 77065

== ENCOUNTER → 2020-01-22 | Outpatient (CLI) | payer MEDICARE, BC ==
[2020-01-22 13:20] LABS: Appearance,Urine Clear (Clear); Bilirubin,Urine Negative (Negative); Blood,Urine Negative (Negative); Color,Urine Yellow; Glucose,Urine (UA) Negative (Negative); Ketones,Urine Negative (Negative); Leukocyte Esterase,Urine Negative (Negative); Nitrite,Urine Negative (Negative); PH, Urine 6.5 (5.0-8.0); Protein,Urine Negative (Negative); Specific Gravity,Urine 1.023 (1.001-1.035); Urobilinogen,Urine <2.0 mg/dL (<2.0)
[2020-01-22 13:28] LABS: Basophils # (A) 0.1 k/uL (0-0.2); Basophils % (A) 1 %; Eosinophils # (A) 0.2 k/uL (0-0.7); Eosinophils % (A) 2 %; HCT 45.6 % (34.0-46.0); HGB 14.6 gm/dL (11.4-16.0); Lymphocytes # (A) 2.2 k/uL (1.0-4.8); Lymphocytes % (A) 25 %; MCV 93.9 fL (80.0-100.0); Mean Platelet Volume 11.8; Monocytes # (A) 0.6 k/uL (0-1.0); Monocytes % (A) 6 %; Neutrophils # (A) 5.5 k/uL (1.3-7.7); Neutrophils % (A) 63 %; RBC 4.86 m/uL (3.80-5.40); RDW 13.5 % (11.5-15.5); WBC 8.7 k/uL (3.8-10.6)
[2020-01-22 14:31] LABS: Platelet Count 148 k/uL (150-450)
[2020-01-22 19:47] LABS: African American GFR (CKD) 89.7 (60.0-200.0); Albumin 4.2 g/dL (3.80-4.90); Albumin/Globulin Ratio 1.75 (1.60-3.17); Anion Gap 4.8 mmol/L (4.00-12.00); Calcium 9.6 mg/dL (8.7-10.3); Carbon Dioxide 28.2 mmol/L (21.6-31.8); Globulin 2.4 g/dL (1.6-3.3); Non-African American GFR(CKD) 77.4 (60.0-200.0); Potassium 4.4 mmol/L (3.5-5.5); Total Bilirubin 0.5 mg/dL (0.3-1.2); Total Protein 6.6 g/dL (6.2-8.2)
== END | disposition home or self-care (01) ==
LOC: LABWHC1 08:42
PROVIDERS: ATTEND Internal Medicine
DX: R10.32 Left lower quadrant pain (principal)
CPT/HCPCS: 36415; 80053; 81003; 85025

== ENCOUNTER 2020-01-23 18:03 | Emergency (ER) | payer MEDICARE, BC ==
[2020-01-23] MEDS ORDERED: SODIUM CHLORIDE 0.9% 1,000 ML IV ONE (18:44)
[2020-01-23 19:13] LABS: Basophils # (A) 0.1 k/uL (0-0.2); Basophils % (A) 1 %; Eosinophils # (A) 0.4 k/uL (0-0.7); Eosinophils % (A) 3 %; HCT 48.7 % (34.0-46.0); HGB 15.5 gm/dL (11.4-16.0); Lymphocytes # (A) 3.1 k/uL (1.0-4.8); Lymphocytes % (A) 26 %; MCH 30.1 pg (25.0-35.0); MCHC 31.8 g/dL (31.0-37.0); MCV 94.5 fL (80.0-100.0); Mean Platelet Volume 11.7; Monocytes # (A) 0.9 k/uL (0-1.0); Monocytes % (A) 7 %; Neutrophils # (A) 6.9 k/uL (1.3-7.7); Neutrophils % (A) 59 %; Platelet Count 162 k/uL (150-450); RBC 5.15 m/uL (3.80-5.40); RDW 13.4 % (11.5-15.5); WBC 11.7 k/uL (3.8-10.6)
[2020-01-23 19:15] LABS: Appearance,Urine Clear (Clear); Bilirubin,Urine Negative (Negative); Blood,Urine Negative (Negative); Color,Urine Light Yellow; Glucose,Urine (UA) Negative (Negative); Ketones,Urine Negative (Negative); Leukocyte Esterase,Urine Negative (Negative); Nitrite,Urine Negative (Negative); Protein,Urine Negative (Negative); Specific Gravity,Urine 1.006 (1.001-1.035); Urobilinogen,Urine <2.0 mg/dL (<2.0)
[2020-01-23 19:24] LABS: ALT 27 U/L (4-34); AST 33 U/L (14-36); African American GFR (CKD) >90 (>60 ml/min/1.73 sqM); Albumin 4.8 g/dL (3.5-5.0); Alkaline Phosphatase 84 U/L (38-126); Anion Gap 9 mmol/L; Blood Urea Nitrogen 18 mg/dL (7-17); Calcium 10.4 mg/dL (8.4-10.2); Carbon Dioxide 29 mmol/L (22-30); Chloride 102 mmol/L (98-107); Glucose 90 mg/dL (74-99); Lipase 190 U/L (23-300); Non-African American GFR(CKD) 80 (>60 ml/min/1.73 sqM); Potassium 4.4 mmol/L (3.5-5.1); Sodium 140 mmol/L (137-145); Total Bilirubin 0.5 mg/dL (0.2-1.3); Total Protein 7.8 g/dL (6.3-8.2)
[2020-01-23 19:26] VITALS: PULSE 63
[2020-01-23 19:36] LABS: Large Platelets Present
--- NOTE | 2020-01-23 19:53 | CT ---
EXAMINATION TYPE: CT abdomen pelvis w con DATE OF EXAM: 01/23/2020 COMPARISON: None INDICATION: Left sided abdominal and flank pain. DLP: 1876.4 mGycm, Automated exposure control for dose reduction was used. CONTRAST: 100ml mL of Isovue 300. Study performed without Oral Contrast TECHNIQUE: Axial images were obtained from above the diaphragm to the pubic rami in the axial plane a t 5 mm thick sections. Reconstructed images are reviewed on the computer in the coronal plane. FINDINGS: Limited CT sections are obtained the lung bases. There is irregular 1.2 x 1.5 cm irregular density a t the left base. Series [address] ABDOMEN: Liver: Tiny cysts within the left lobe liver measuring 0.5 cm 14 Hounsfield units. Spleen: Calcification is within the spleen. Pancreas: Normal Adrenal glands: Adrenal gland is thickened at 1.1 cm. Right adrenal gland has a hypodense area in the superior medial portion measuring 1.8 cm. Gallbladder: Normal Kidneys: Left kidney appears resected. The right kidney appears normal without masses cysts or hydron ephrosis. No suspicious adenopathy level the renal arteries is evident Aorta: Normal Inferior vena cava: Normal. CT PELVIS: Loops of bowel within the abdomen and pelvis are normal. Study is without oral contrast limiting bowel evaluation. Appendix: Normal as visualized. Urinary bladder: Unremarkable Genitourinary structures: Uterus and ovaries are absent. Osseous structures: No suspicious lytic or sclerotic lesions. IMPRESSIONS: 1. Irregular mass density in the left lung base. Neoplastic disease is not excluded. Additional work up is recommended. 2. Mild prominence of the adrenal glands 3. Left nephrectomy.
[2020-01-23] MEDS ORDERED: KETOROLAC 15 MG/ML 1 ML VIAL IVP STA (20:08)
--- NOTE | 2020-01-23 20:11 | ED ---
Abdominal Pain HPI - General Chief Complaint: Abdominal Pain Stated Complaint: lt sided pain Time Seen by Provider: 01/23/20 18:25 Source: patient Mode of arrival: ambulatory Limitations: no limitations - History of Present Illness Initial Comments: Patient is a 65-year-old female past medical history of asthma, hypertension and pacheco kidney presents to the emergency department with reported left-sided flank pain. Reports that it is reproducible in nature with movement. Denies any trauma. No associated urinary symptoms to include dysuria, hematuria or difficulty voiding. No changes in her bowel habits. No fevers or chills. Denies nausea or vomiting. 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 She saw Dr. Denton in office earlier this week and he placed her on muscle relaxers. States that they aren't helping her symptoms. He ordered a CT of her abdomen and pelvis however told her that if her pain with to severe to come into the emergency department. She denies any back pain. No pain that extends into her lower extremity. No unilateral numbness or weakness. No other alleviating, precipitating or modifying factors - Related Data Home Medications Medication Instructions Recorded Confirmed Nebivolol HCl [Bystolic] 20 mg PO QAM 07/23/16 12/27/17 Sertraline [Zoloft] 100 mg PO QAM 07/23/16 12/27/17 Previous Rx's Medication Instructions Recorded Ketorolac [Toradol] 10 mg PO Q8HR #15 tab 01/23/20 Allergies Allergy/AdvReac Type Severity Reaction Status Date / Time adhesive tape Allergy Rash/Hives Verified 01/23/20 18:25 cefdinir [From Omnicef] Allergy Swelling, Verified 01/23/20 18:25 LIPS AND THROAT Review of Systems ROS Statement: Those systems with pertinent positive or pertinent negative responses have been documented in the HPI. ROS Other: All systems not noted in ROS Statement are negative. 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 History of Any Multi-Drug Resistant Organisms: None Reported Past Surgical History: Joint Replacement, Orthopedic Surgery Additional Past Surgical History / Comment(s): REMOVAL LEFT KIDNEY (donated it), RIGHT AND LEFT FOOT bunion sx, BILATERAL CARPAL RELEASE, total left knee, Past Anesthesia/Blood Transfusion Reactions: Motion Sickness Past Psychological History: Anxiety, Depression Smoking Status: Never smoker Past Alcohol Use History: Rare Past Drug Use History: None Reported - Past Family History Sister(s) Family Medical History: Cancer, Coronary Artery Disease (CAD) Additional Family Medical History / Comment(s): BREAST CANCER Brother(s) Family Medical History: Cancer, Coronary Artery Disease (CAD) Additional Family Medical History / Comment(s): BRAIN CANCER Son(s) Family Medical History: Cancer Additional Family Medical History / Comment(s): brain General Exam Limitations: no limitations General appearance: alert, in no apparent distress Head exam: Present: atraumatic, normocephalic, normal inspection Eye exam: Present: normal appearance, PERRL, EOMI. Absent: scleral icterus, conjunctival injection, periorbital swelling ENT exam: Present: normal exam, mucous membranes moist Neck exam: Present: normal inspection. Absent: tenderness, meningismus, lymphadenopathy Respiratory exam: Present: normal lung sounds bilaterally. Absent: respiratory distress, wheezes, rales, rhonchi, stridor Cardiovascular Exam: Present: regular rate, normal rhythm, normal heart sounds. Absent: systolic murmur, diastolic murmur, rubs, gallop, clicks GI/Abdominal exam: Present: soft, normal bowel sounds. Absent: distended, tenderness, guarding, rebound, rigid Extremities exam: Present: normal inspection, full ROM, normal capillary refill. Absent: tenderness, pedal edema, joint swelling, calf tenderness Back exam: Present: CVA tenderness (L), muscle spasm, paraspinal tenderness, other (5/5 muscle strength bilateral lower extremities. 2+DP and PT pulses. Compartments are soft). Absent: rash noted Neurological exam: Present: alert, oriented X3, CN II-XII intact Psychiatric exam: Present: normal affect, normal mood Skin exam: Present: warm, dry, intact, normal color. Absent: rash Course Vital Signs 01/23/20 01/23/20 01/23/20 18:22 19:10 20:25 Temperature 98 F 97.8 F 97.5 F L Pulse Rate 56 L 63 63 Respiratory 18 17 18 Rate Blood Pressure 142/76 122/69 127/79 O2 Sat by Pulse 99 96 97 Oximetry Medical Decision Making - Medical Decision Making Upon arrival the patient was placed into room 11. A thorough history and physical exam was performed. Laboratory studies were conducted. Patient went for CT of her abdomen and pelvis with contrast. CT is low for a mass with left lung base. Patient is notified of this finding. No other additional findings. Patient was given a dose of Toradol. Did call discuss the case with Dr. Denton. Patient will be placed on a short course of Toradol. She is to follow-up with him next week in office. She has any new or worsening symptoms return to the emergency room. The patient was discharged home in stable condition - Lab Data Result diagrams: 01/23/20 18:52 01/23/20 18:52 Lab Results 01/23/20 01/23/20 01/23/20 Range/Units 18:52 18:52 18:52 WBC 11.7 H (3.8-10.6) k/uL RBC 5.15 (3.80-5.40) m/uL Hgb 15.5 (11.4-16.0) gm/dL Hct 48.7 H (34.0-46.0) % MCV 94.5 (80.0-100.0) fL MCH 30.1 (25.0-35.0) pg MCHC 31.8 (31.0-37.0) g/dL RDW 13.4 (11.5-15.5) % Plt Count 162 (150-450) k/uL Neutrophils % 59 % Lymphocytes % 26 % Monocytes % 7 % Eosinophils % 3 % Basophils % 1 % Neutrophils # 6.9 (1.3-7.7) k/uL Lymphocytes # 3.1 (1.0-4.8) k/uL Monocytes # 0.9 (0-1.0) k/uL Eosinophils # 0.4 (0-0.7) k/uL Basophils # 0.1 (0-0.2) k/uL Manual Slide Review Performed Large Platelets Present RBC Morphology Normal Sodium 140 (137-145) mmol/L Potassium 4.4 (3.5-5.1) mmol/L Chloride 102 (98-107) mmol/L Carbon Dioxide 29 (22-30) mmol/L Anion Gap 9 mmol/L BUN 18 H (7-17) mg/dL Creatinine 0.78 (0.52-1.04) mg/dL Est GFR (CKD-EPI)AfAm >90 (>60 ml/min/1.73 sqM) Est GFR (CKD-EPI)NonAf 80 (>60 ml/min/1.73 sqM) Glucose 90 (74-99) mg/dL Plasma Lactic Acid Kay[place] (0.7-2.0) mmol/L Calcium 10.4 H (8.4-10.2) mg/dL Total Bilirubin 0.5 (0.2-1.3) mg/dL AST 33 (14-36) U/L ALT 27 (4-34) U/L Alkaline Phosphatase 84 (38-126) U/L Total Protein 7.8 (6.3-8.2) g/dL Albumin 4.8 (3.5-5.0) g/dL Lipase 190 (23-300) U/L Urine Color Light Yellow Urine Appearance Clear (Clear) Urine pH 6.0 (5.0-8.0) Ur Specific [place] 1.006 (1.001-1.035) Urine Protein Negative (Negative) Urine Glucose (UA) Negative (Negative) Urine Ketones Negative (Negative) Urine Blood Negative (Negative) Urine Nitrite Negative (Negative) Urine Bilirubin Negative (Negative) Urine Urobilinogen <2.0 (<2.0) mg/dL Ur Leukocyte Esterase Negative (Negative) 01/23/20 Range/Units 18:52 WBC (3.8-10.6) k/uL RBC (3.80-5.40) m/uL Hgb (11.4-16.0) gm/dL Hct (34.0-46.0) % MCV (80.0-100.0) fL MCH (25.0-35.0) pg MCHC (31.0-37.0) g/dL RDW (11.5-15.5) % Plt Count (150-450) k/uL Neutrophils % % Lymphocytes % % Monocytes % % Eosinophils % % Basophils % % Neutrophils # (1.3-7.7) k/uL Lymphocytes # (1.0-4.8) k/uL Monocytes # (0-1.0) k/uL Eosinophils # (0-0.7) k/uL Basophils # (0-0.2) k/uL Manual Slide Review Large Platelets RBC Morphology Sodium (137-145) mmol/L Potassium (3.5-5.1) mmol/L Chloride (98-107) mmol/L Carbon Dioxide (22-30) mmol/L Anion Gap mmol/L BUN (7-17) mg/dL Creatinine (0.52-1.04) mg/dL Est GFR (CKD-EPI)AfAm (>60 ml/min/1.73 sqM) Est GFR (CKD-EPI)NonAf (>60 ml/min/1.73 sqM) Glucose (74-99) mg/dL Plasma Lactic Acid [place] 1.5 (0.7-2.0) mmol/L Calcium (8.4-10.2) mg/dL Total Bilirubin (0.2-1.3) mg/dL AST (14-36) U/L ALT (4-34) U/L Alkaline Phosphatase (38-126) U/L Total Protein (6.3-8.2) g/dL Albumin (3.5-5.0) g/dL Lipase (23-300) U/L Urine Color Urine Appearance (Clear) Urine pH (5.0-8.0) Ur Specific [place] (1.001-1.035) Urine Protein (Negative) Urine Glucose (UA) (Negative) Urine Ketones (Negative) Urine Blood (Negative) Urine Nitrite (Negative) Urine Bilirubin (Negative) Urine Urobilinogen (<2.0) mg/dL Ur Leukocyte Esterase (Negative) Disposition Clinical Impression: Flank pain, Pulmonary nodule Disposition: HOME SELF-CARE Condition: Stable Instructions (If sedation given, give patient instructions): Flank Pain (ED) Additional Instructions: Hagerman follow-up with Dr. Denton in regards to her symptoms. Return to the emergency room for any new or worsening symptoms. He will refer you to a manager regional for your lung nodule. Prescriptions: Ketorolac [Toradol] 10 mg PO Q8HR #15 tab Is patient prescribed a controlled substance at d/c from ED?: No Referrals: Eric Denton MD [Primary Care Provider] - 1-2 days Time of Disposition: 20:11
[2020-01-23 20:28] VITALS: BP 127/79; RESP 18; TEMP 97.5
== END 2020-01-23 20:27 | disposition home or self-care (01) ==
LOC: EC 18:03
DX: R10.9 Unspecified abdominal pain (principal); R91.1 Solitary pulmonary nodule; I10 Essential (primary) hypertension; F41.9 Anxiety disorder, unspecified; F32.9 Major depressive disorder, single episode, unspecified; Z79.899 Other long term (current) drug therapy; Z91.048 Other nonmedicinal substance allergy status; Z88.1 Allergy status to other antibiotic agents; Z85.42 Personal history of malignant neoplasm of other parts of uterus; Z90.5 Acquired absence of kidney; Z52.4 Kidney donor; Z87.19 Personal history of other diseases of the digestive system
CPT/HCPCS: 99284; 96374; 96361; 36415; 80053; 83605; 83690; 85025; 81003; 74177; J1885; Q9967

== ENCOUNTER → 2020-02-11 | Outpatient (CLI) | payer MEDICARE, BC ==
--- NOTE | 2020-02-12 07:28 | CT ---
EXAMINATION TYPE: CT chest w con DATE OF EXAM: 02/11/2020 COMPARISON: CT abdomen pelvis 01/23/2020 HISTORY: Lung nodule CT DLP: 498.1 mGycm, Automated exposure control for dose reduction was used. CONTRAST: Performed injected with 100 mL of Isovue 300. TECHNIQUE: Axial images were obtained at 5 mm thick sections. Reconstructed images are reviewed on [email or web address] computer in the coronal plane. FINDINGS: Portion of the thyroid visualized is normal. On lung windows there is a 1.7 x 1.2 cm irregular density with some eccentric calcification. Series 4 image 40. This corresponds to the prior CT. Remainder of the lung smiley appear clear. No enlarged mediastinal or hilar adenopathy is evident. The ascending aorta diameter at the level o f the main pulmonary artery is 3.7 cm. The main pulmonary artery diameter at the bifurcation is 3.[address] sections are obtained through the upper abdomen. There is been a left nephrectomy. IMPRESSIONS: 1. Irregular density left lung base with some eccentric calcification. Additional workup with PET CT is recommended. 2. No additional suspicious lung densities or mediastinal lymphadenopathy.
== END | disposition home or self-care (01) ==
LOC: RADCTMAIN 15:13
PROVIDERS: ATTEND Internal Medicine Critical Care Medicine
DX: J98.4 Other disorders of lung (principal); Z88.1 Allergy status to other antibiotic agents
CPT/HCPCS: 82565; 84520; 71260; 36415; Q9967

== ENCOUNTER → 2020-03-11 | Outpatient (CLI) | payer MEDICARE, BC ==
--- NOTE | 2020-03-13 15:14 | PE ---
Nuclear medicine PET/CT HISTORY: R 91.1, lung nodule, initial Patient received 11 mCi F-18 FDG intravenously, delayed scanning was performed from the skull base to the mid thighs. Localization and attenuation correction CT scan was performed. Correlation to CT scan 01/23/2020, 02/11/2020 Chest and neck: Left lower lobe lung mass shows calcification likely due to granulomatous disease. Th ere is no mediastinal, axillary, or hilar adenopathy. Calcified left hilar nodes are present. No pleu ral pericardial effusion, no suspicious uptake. There is no cervical or supraclavicular adenopathy. ABDOMEN: Patient is post left nephrectomy. No evident liver uptake or retroperitoneal adenopathy. The re is no ascites. No suspicious uptake. Osseous structures show no suspicious uptake. IMPRESSION: Benign lung nodule. No suspicious uptake. Postop changes.
== END | disposition home or self-care (01) ==
LOC: RADPETMAIN 15:10
PROVIDERS: ATTEND Internal Medicine Critical Care Medicine
DX: R91.1 Solitary pulmonary nodule (principal); Z98.890 Other specified postprocedural states
CPT/HCPCS: 78815; A9552

== ENCOUNTER → 2021-04-13 | Outpatient (CLI) | payer MEDICARE ==
--- NOTE | 2021-04-17 09:54 | MM ---
Reason for exam: screening (asymptomatic). Last mammogram was performed 3 years and 3 months ago. History: Patient is postmenopausal, has history of endometrial cancer at age 64, and has history of ovarian cancer at age 64. Family history of premenopausal breast cancer in sister at age 30. Physical Findings: A clinical breast exam by your physician is recommended on an annual basis and results should be correlated with mammographic findings. MG 3D Screening Mammo W/Cad Bilateral CC and MLO view(s) were taken. Prior study comparison: January 15, 2018, bilateral MG screening mammo w CAD. November 10, 2015, bilateral MG screening mammo w CAD. There are scattered fibroglandular densities. There is no discrete abnormality. ASSESSMENT: Negative, BI-RAD 1 RECOMMENDATION: Routine screening mammogram of both breasts in 1 year.
== END | disposition home or self-care (01) ==
LOC: RADMAMWWP 14:45
PROVIDERS: ATTEND Obstetrics & Gynecology
DX: Z12.31 Encounter for screening mammogram for malignant neoplasm of breast (principal); Z80.3 Family history of malignant neoplasm of breast; Z78.0 Asymptomatic menopausal state; Z85.43 Personal history of malignant neoplasm of ovary
CPT/HCPCS: 77063; 77067

== ENCOUNTER → 2021-11-02 | Outpatient (CLI) | payer MEDICARE ==
--- NOTE | 2021-11-03 03:59 | MR ---
EXAMINATION TYPE: MR pancreas / mrcp wo/w con DATE OF EXAM: 11/02/2021 COMPARISON: None HISTORY: CA tail of pancreas CONTRAST: Standard multiplanar, multisequence MRI departmental protocol images were obtained without contrast a nd with 9 mL intravenous Gadavist gadolinium contrast. The lung bases show no pleural effusion. No sign of pericardial effusion. On the T2 images there are numerous small foci of increased signal throughout the liver. These measur e up to 1.5 cm. The liver lesions appear to show some ring enhancement. There is a irregular large mass in the tail of the pancreas that measures 8 x 4 cm and shows peripher al enhancement with the contrast. The central component has fluid signal and could be necrosis or cys tic. Pancreatic duct is not dilated. The spleen is intact. The stomach is intact. There is some anterior d isplacement of the stomach due to the pancreatic mass. Gallbladder appears normal. The bile ducts are not dilated. There is left nephrectomy. The right kidn ey shows no hydronephrosis. There is 2 cm right adrenal mass. Unchanged. There is no sign of retroperitoneal adenopathy. There is no ascites. No bowel obstruction. The MRCP images show normal size biliary tree. No dilated ducts. IMPRESSION: Large mass in the tail of the pancreas consistent with a tumor. There is probably central necrosis. Numerous ring-enhancing lesions in the liver consistent with metastatic disease. There is right adren al small mass not changed compared to old CT scan and likely benign. Left nephrectomy. Pancreatic mass and liver lesions appear new compared to the old exam.
== END | disposition home or self-care (01) ==
LOC: RADMRIMAIN 13:21
PROVIDERS: ATTEND Internal Medicine Hematology & Oncology
DX: C25.2 Malignant neoplasm of tail of pancreas (principal); C78.7 Secondary malignant neoplasm of liver and intrahepatic bile duct; Z90.5 Acquired absence of kidney
CPT/HCPCS: 74183

== ENCOUNTER → 2021-11-17 | Outpatient (CLI) | payer MEDICARE | END | disposition home or self-care (01) | LOC: LABWHC1 13:02 | PROVIDERS: ATTEND Internal Medicine | DX: E11.9 Type 2 diabetes mellitus without complications (principal) | CPT/HCPCS: 36415; 83519; 83525; 84681; 86337 ==

== ENCOUNTER 2021-12-18 08:51 | Day surgery (SDC) | payer MEDICARE ==
[2021-12-15 10:43] VITALS: BMI 31.1
[~2021-12-18 08:51] MED LIST changes: +ACETAMINOPHEN TAB 500 MG TAB PO PRN; +HEPARIN SODIUM,PORCINE/PF 5,000 UNIT/0.5 ML SYRINGE SQ PRN; -LACTATED RINGERS 1,000 ML IV SCH; +Pre Op ABX Message 1 EACH MISC MISCELLANE ONE
[2021-12-18] MEDS ORDERED: LACTATED RINGERS 1,000 ML IV SCH (09:02)
[2021-12-18] MEDS ORDERED: ONDANSETRON 4 MG/2 ML VIAL IVP ONE (09:02)
[2021-12-18] MEDS ORDERED: DEXAMETHASONE SOD PHOSPHATE 4 MG/ML 1 ML VIAL IV ONE (09:02)
[2021-12-18] MEDS ORDERED: HYDROmorphone 0.5 MG/0.5 ML SYRINGE IVP PRN (09:02)
[2021-12-18 09:36] LABS: Glucose,Whole Blood 152 mg/dL (70-110)
--- NOTE | 2021-12-18 09:43 | P.GSHP ---
History of Present Illness H&P Date: 12/18/21 Chief Complaint: Pancreatic cancer 66-year-old female here today for Port-A-Cath placement. Patient recently diagnosed with metastatic pancreatic cancer. Patient is undergoing palliative chemotherapy at this time. She is considering conversion to hospice. Patient still would like to have IV access in case hospice requires that. 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 History of Any Multi-Drug Resistant Organisms: None Reported Past Surgical History: Hysterectomy, Joint Replacement, Orthopedic Surgery Additional Past Surgical History / Comment(s): REMOVAL LEFT KIDNEY (donated it), RIGHT AND LEFT FOOT bunion sx, BILATERAL CARPAL RELEASE, total left knee, bx. of pancrease Past Anesthesia/Blood Transfusion Reactions: Motion Sickness Smoking Status: Never smoker - Past Family History Sister(s) Family Medical History: Cancer, Coronary Artery Disease (CAD) Additional Family Medical History / Comment(s): BREAST CANCER Brother(s) Family Medical History: Coronary Artery Disease (CAD) Additional Family Medical History / Comment(s): BRAIN CANCER Son(s) Family Medical History: Cancer Additional Family Medical History / Comment(s): brain Medications and Allergies Home Medications Medication Instructions Recorded Confirmed Type Nebivolol HCl [Bystolic] 20 mg PO QAM 07/23/16 12/18/21 History Sertraline [Zoloft] 100 mg PO QAM 07/23/16 12/18/21 History Insulin Aspart [NovoLOG] 10 units SQ ACHS 12/15/21 12/18/21 History Insulin Glargine,Hum.rec.anlog 30 units SQ HS 12/15/21 12/18/21 History [Chandrika Layne] Multivitamins, Thera [Multivitamin 1 tab PO DAILY 12/15/21 12/18/21 History (formulary)] Christine-3/Dha/Epa/Fish Oil [Fish Oil 1 each PO DAILY 12/15/21 12/18/21 History 1,000 mg Softgel] Allergies Allergy/AdvReac Type Severity Reaction Status Date / Time adhesive tape Allergy Rash/Hives Verified 12/18/21 09:12 cefdinir [From Omnicef] Allergy Swelling, Verified 12/18/21 09:12 LIPS AND THROAT Surgical - Exam Vital Signs Temp Pulse Resp BP Pulse Ox 97.9 F 84 17 137/64 95 12/18/21 09:12 12/18/21 09:12 12/18/21 09:12 12/18/21 09:12 12/18/21 09:12 Physical exam: General: Well-developed, well-nourished HEENT: Normocephalic, sclerae nonicteric Abdomen: Nontender, nondistended Extremities: No edema Neuro: Alert and oriented Results - Labs Abnormal Lab Results - Last 24 Hours (Table) 12/18/21 Range/Units 09:33 POC Glucose (mg/dL) 152 H (70-110) mg/dL Assessment and Plan (1) Metastatic adenocarcinoma to pancreas Narrative/Plan: Will proceed with Port-A-Cath placement at this time. Risks of bleeding, infection, DVT, pneumothorax, catheter malfunction, anesthesia related complications were discussed. The patient understands and wishes to proceed. Current Visit: Yes Status: Acute Code(s): C78.89 - SECONDARY MALIGNANT NEOPLASM OF OTHER DIGESTIVE ORGANS SNOMED Code(s): 33099246
[2021-12-18] MEDS ORDERED: LIDOCAINE 2% INJ 20 MG/ML (2 ML VIAL) ONE (09:48)
[2021-12-18] MEDS ORDERED: fentaNYL (PF) 50 MCG/ML 2 ML AMP ONE (09:48)
[2021-12-18] MEDS ORDERED: PROPOFOL 10 MG/ML 20 ML VIAL IV ONE (09:48)
[2021-12-18] MEDS ORDERED: PHENYLEPHRINE-0.9% NACL SYG 1,000 MCG/10 ML SYRINGE ONE (09:48)
[2021-12-18] MEDS ORDERED: MIDAZOLAM 2 MG/2 ML VIAL ONE (09:48)
[2021-12-18] MEDS ORDERED: SODIUM CHLORIDE 0.9% 100 ML IV ONE (10:13)
[2021-12-18] MEDS ORDERED: LIDOCAINE (PF) 10 MG/ML 2 ML VIAL SQ ONE (10:14)
[2021-12-18] MEDS ORDERED: HEPARIN SODIUM,PORCINE 100 UNIT/ML 5 ML VIAL IV ONE (10:14)
[2021-12-18 10:50] VITALS: RESP 16; TEMP 97.1
--- NOTE | 2021-12-18 10:54 | P.OP ---
Date of Procedure: 12/18/21 Procedure(s) Performed: PREOPERATIVE DIAGNOSIS: Metastatic pancreatic cancer POSTOPERATIVE DIAGNOSIS: Same PROCEDURE: Port-A-Cath placement with fluoroscopic and ultrasound guidance SURGEON: Cristy EBL: Minimal ANESTHESIA: Sedation COMPLICATIONS: None OPERATIVE PROCEDURE: Patient was brought and placed on the operative table in the supine position. The patient was sedated per anesthesia that time. The chest and neck were prepped and draped in usual sterile fashion. The ultrasound probe was used to identify the location of the right internal jugular vein. The skin was localized with lidocaine. The Seldinger needle was advanced into the IJ under ultrasound guidance. The wire was advanced through the needle under fluoroscopic guidance into the superior vena cava. A port pocket was created in the right infraclavicular location. The catheter was tunneled from the wire entrance site to the port pocket. The port was then connected to the catheter. The dilator introducer was threaded over the guidewire. The guidewire and dilator were then removed. The catheter was advanced through the introducer and introducer was then removed. The tip was seen to be in the right atrial junction via fluoroscopy. A picture of the radiograph showing the tip at the radial digital junction was taken. Port was flushed with both saline and a Hep- Lock solution. There was good flow both in and out of the port. The port was sutured in underlying tissues using 3-0 silk sutures. The subcutaneous tissues were reapproximated using 3-0 Vicryl sutures and the skin at both locations using 4-0 Monocryl sutures. Skin glue and sterile dressings then applied. DISPOSITION: Stable to recovery room
[2021-12-18] MEDS ORDERED: NALOXONE 0.4 MG/ML 1 ML VIAL IV PRN (10:55)
[2021-12-18] MEDS ORDERED: HYDROcodone/APAP 5-325MG 1 EACH TAB PO PRN (10:55)
--- NOTE | 2021-12-18 11:25 | XR ---
EXAMINATION TYPE: XR chest 1V confirm line [facility] DATE OF EXAM: 12/18/2021 COMPARISON: 02/02/2020 INDICATION: Line placement TECHNIQUE: Single frontal view of the chest is obtained. FINDINGS: The heart size is normal. The pulmonary vasculature is normal. The lungs are clear. Nodularity at the left base is not clearly identified on the current exam. A port has been placed on the right with the tip in the superior vena cava region. No pneumothorax is evident. IMPRESSION: 1. No acute pulmonary process. 2. No pneumothorax post port placement.
--- NOTE | 2021-12-18 11:33 | FL ---
Fluoroscopy INDICATION: Pain FINDINGS: Fluoroscopy time: 9 seconds. Images obtained: 2. IMPRESSIONS: 1. Documentation of fluoroscopy.
[2021-12-18 11:42] VITALS: BP 109/60; PULSE 77
== END 2021-12-18 12:05 | disposition home or self-care (01) ==
LOC: OR 08:51
PROVIDERS: ATTEND Surgery
DX: C25.9 Malignant neoplasm of pancreas, unspecified (principal); C79.9 Secondary malignant neoplasm of unspecified site; J45.909 Unspecified asthma, uncomplicated; I10 Essential (primary) hypertension; M19.90 Unspecified osteoarthritis, unspecified site; C56.9 Malignant neoplasm of unspecified ovary; C55 Malignant neoplasm of uterus, part unspecified; Z90.5 Acquired absence of kidney; Z79.899 Other long term (current) drug therapy; Z79.4 Long term (current) use of insulin; Z88.1 Allergy status to other antibiotic agents; Z91.09 Other allergy status, other than to drugs and biological substances; Z86.010 Personal history of colon polyps; Z90.710 Acquired absence of both cervix and uterus; Z98.890 Other specified postprocedural states; Z96.652 Presence of left artificial knee joint; Z82.49 Family history of ischemic heart disease and other diseases of the circulatory system; Z80.8 Family history of malignant neoplasm of other organs or systems; Z80.3 Family history of malignant neoplasm of breast
CPT/HCPCS: 77001; 36561; C1788; J2250; J2001 ×2; J1642; J1100; J2405; J3010; J2370; J2704

== ENCOUNTER → 2022-01-01 | Outpatient (CLI) | payer MEDICARE ==
--- NOTE | 2022-01-01 09:39 | P.PAINPG ---
PQRS Measure Charge Sheet Comment: A 66 yr old female a s a referral from Dr Denton from the [facility] with a history of severe and chronic low back pain secondary to lumbar degenerative disc diseases and lumbar spondylosis with facet arthropathy presents today for evaluation of LBP. Pain level is currently at 10/10 in intensity, constant, sharp, gnawing pain in the lumbar spine shooting towards L & R "like a band." Pain is provoked by any activity. Pain is alleviated with medications (Clearwater 7.5/325mg), topicals, home based stretching regmen and rest. PMH: Asthma, Hypertension, OA, Ovarian/Uterine CA PSH: Hystrectomy, L Kidney Donor, BL Foot Bunionectomies, BL Carpal Tunnel Release, L Total Knee Arthroplasty, Pancreas Biopsy FH: Sis- Breast CA/ CAD. Brother- CAD/ Brain CA. Son- Brain CA. SH: Never smoker, No ETOH abuse, No illicit drug use. All: See list Meds: See list Patient is currently on Clearwater 7.5/325 mg Patient denies any side effects of the medication(s), denies excessive drowsiness or sleepiness, denies suicidal ideation and reports that the current pain medication is helping to control the pain and improve activities of daily living. Patient denies any motor or sensory deficits. Patient denies any fever or night sweats, denies any change in the bowel movements or urination. Physical Examination: -Constitutional: Cooperative. Not in acute distress . - Neurologic: Cranial nerve II to XII intact. No focal neurological deficits. - Psychatric: Alert & oriented x 3. Matching mood & appropriate affect. J udgment and insight intact. - Musculoskeletal: Cervical spine: Muscle bulk/ tone/ strength in the bilateral upper extremities normal Vertebral body tenderness to palpation over Spurling test positive Distraction test positive Facet loading test positive Thoracic spine Muscle bulk / tone/ strength in the bilateral paraspinal muscles normal Vertebral body tender to palpation over Facet loading test positive Lumbar spine: Motor bulk/ tone/ strength lower extremities , thigh and legs : 5/5 Deep tendon reflexes : Normal Knee Jerk. Normal Ankle Jerk . Vertebral body tenderness to palpation over Lumbar Facet Loading Test positive Straight Leg Raise: positive at 30 degrees right side/ left side Gaenslen's Test positive Sacral spine : Severe tenderness over the Sacroiliac joint: right side / left side Range of motion: Flexion of the lumbar spine <60 degrees Range of motion: Extension of the lumbar spine <20 degrees Gaenslen's Test positive Sergio's Test positive Namrata test: positive right side / left side Thigh Thrust Test Sacral Thrust Test Assessment and plan: Chronic low back pain secondary to lumbar degenerative disc disease , lumbar spondylosis with facet arthropathy without myelopathy Recommendation of LESI L1-L2. May need a series of injections, up to 3 within a 6 mo period, for optimal pain relief. Risks, benefits of procedure discussed and pt verbalized understanding. Denies anticoagulant use or medical history of diabetes. Chronic and current use of high-risk medication (Opioids). The patient was counseled about risk of opioid use, psychological risk associated with opioids and was orally counseled to not overuse , divert or sell medications. Pt is to store medication in a safe location. The patient is counseled against driving while using narcotic medications and also not to use alcohol or any illicit recreational drugs. Patient verbalized understanding that the lack of compliance will result in failure to renew narcotic prescription(s) as well as possible discharge from the clinic Diagnoses, prognosis and treatment options including but not limited to physical therapy, surgical interventions, interventional therapies and medication management including narcotics and adjuvant medication were discussed. All patient questions answered MAPS reviewed and it was appropriate. I have spent less than 30 minutes on patient care today. Dr Krishnan was available by phone for the evaluation of this patient. The time was used to review the medical records including relevant urine studies and Prescription history (MAPs), review of the available imaging, evaluation and examination of the patient, coordination of care with the medical staff and if applicable referring physicians, as well as creation of the medical record PQRS Narrative: Smoking Status Never smoker Home Medications: Ambulatory Orders Nebivolol HCl [Bystolic] 20 mg PO QAM 07/23/16 Sertraline [Zoloft] 100 mg PO QAM 07/23/16 Insulin Aspart [NovoLOG] 10 units SQ ACHS 12/15/21 Insulin Glargine,Hum.rec.anlog [Toujeo Solostar] 30 units SQ HS 12/15/21 Multivitamins, Thera [Multivitamin (formulary)] 1 tab PO DAILY 12/15/21 [place]-3/Dha/Epa/Fish Oil [Fish Oil 1,000 mg Softgel] 1 each PO DAILY 12/15/21 Controlled Substance Measures - Controlled Substance Measures Is patient prescribed a controlled substance at discharge?: No
[2022-01-01 10:01] VITALS: BP 110/59; PULSE 109; RESP 18; TEMP 98.1
== END ==
LOC: PNWHC3 09:04
PROVIDERS: ATTEND Specialist
DX: M47.816 Spondylosis without myelopathy or radiculopathy, lumbar region (principal); M51.36 Other intervertebral disc degeneration, lumbar region; J45.909 Unspecified asthma, uncomplicated; I10 Essential (primary) hypertension; M19.90 Unspecified osteoarthritis, unspecified site; G89.29 Other chronic pain; Z79.891 Long term (current) use of opiate analgesic; Z91.048 Other nonmedicinal substance allergy status; Z88.1 Allergy status to other antibiotic agents
CPT/HCPCS: 99211

== ENCOUNTER 2022-01-02 07:48 | Day surgery (SDC) | payer MEDICARE ==
[~2022-01-02 07:48] MED LIST changes: -ACETAMINOPHEN TAB 500 MG TAB PO PRN; -HEPARIN SODIUM,PORCINE/PF 5,000 UNIT/0.5 ML SYRINGE SQ PRN; +LACTATED RINGERS 1,000 ML IV SCH; -Pre Op ABX Message 1 EACH MISC MISCELLANE ONE
[2022-01-02 08:07] VITALS: RESP 16; TEMP 97.8
[2022-01-02 08:18] LABS: Glucose,Whole Blood 176 mg/dL (70-110)
[2022-01-02] MEDS ORDERED: fentaNYL (PF) 50 MCG/ML 2 ML AMP ONE (08:21)
[2022-01-02] MEDS ORDERED: MIDAZOLAM 2 MG/2 ML VIAL ONE (08:21)
[2022-01-02] MEDS ORDERED: methylPREDNISolone ACETATE 40 MG/ML 1 ML VIAL ONE (08:21)
[2022-01-02] MEDS ORDERED: IOPAMIDOL M200 10 ML VIAL ONE (08:21)
--- NOTE | 2022-01-02 08:38 | P.PCN ---
Date of Procedure: 01/02/22 Procedure(s) Performed: Lumbar epidural steroid injection Description of Procedure: PREOPERATIVE DIAGNOSIS: lumbar radiculopathy POSTOPERATIVE DIAGNOSIS: Lumbar radiculopathy PROCEDURE 1. Lumbar epidural steroid injection under fluoroscopic guidance at the L1-L2 2. Lumbar epidurogram. Imaging: Fluoroscopy was used, images where saved to the medical record ANESTHESIA: Medication Administered by: Nurse Sedation Type: Moderate sedation Sedation Supervision start time: 826 Sedation Supervision end time: 837 EBL: Minimal PROCEDURE INDICATION: The patient with low back pain and radiculitis symptoms unresponsive to conservative treatment. Fluoroscopy was used to optimize visualization of the needle placement and to maximize safety. PROCEDURE DESCRIPTION / TECHNIQUE: The patient was seen and identified in the preoperative area. Risks, benefits, complications including but not limited to infections ,bleeding ,allergic reaction to the medications, nerve damage and incomplete pain relief , as well as alternatives to the procedure were discussed with the patient. The patient agreed to proceed with the procedure and signed the consent. IV was started, and vital signs were stable. Patient was taken to the OR and time out was completed. The patient was placed in the prone position on procedure table and a pillow was placed under the abdomen to reduce lumbar lordosis. The lumbosacral area was prepped and draped in the usual sterile fashion. Vitals were closely monitored during the procedure. Using anterior-posterior fluoroscopy, the L 1/2 interlaminar space was identified and the skin over this site was marked and then infiltrated with 1% lidocaine subcutaneously. Subsequently, a 20-gauge Tuohy epidural needle was inserted and advanced toward the epidural space using the Loss of resistance technique and guided by AP and lateral fluoroscopy. The correct needle position in the epidural space was verified with the injection of 1 mL of Omnipaque 180 contrast to observe an acceptable epidurogram, after negative aspiration for blood and CSF and in the absence of paresthesias. Again after negative a spiration, a 5 ml mixture containing 40mg of depomedrol and 2 ml of preservative free Normal Saline was injected and a washout of epidurogram was seen. Needle was withdrawn intact, skin was cleansed, and bandages were applied. COMPLICATIONS: None DISPOSITION / PLANS: The patient was placed in a supine position and transferred to the recovery area in a stable condition for observation. There was no evidence of lower extremity motor or sensory deficit after the procedure. Patient was discharged from the recovery room after meeting discharge criteria. Home discharge instructions were given to the patient by the staff. The patient was reexamined prior to discharge. I have asked the clinic to give the patient a call over the next day or 2 and determine if she gets any better. If she is not improved she would be a very good candidate for a celiac plexus block in relation to her pancreatic cancer.
[2022-01-02] MEDS ORDERED: IV FLUID CONTINUATION 700 ML IV ONE (08:40)
[2022-01-02 09:09] VITALS: BP 114/59; PULSE 74
--- NOTE | 2022-01-04 13:14 | FL ---
EXAMINATION TYPE: FL guided pain mgmt statistic DATE OF EXAM: 01/02/2022 FLUOROSCOPY Fluoroscopy time of 6 seconds was used during lumbar epidural steroid injection. 1 image/s document/ s the procedure.
== END 2022-01-02 09:24 | disposition home or self-care (01) ==
LOC: ORPAIN 07:48
PROVIDERS: ATTEND Hospitalist
DX: M54.16 Radiculopathy, lumbar region (principal); Z88.1 Allergy status to other antibiotic agents; Z91.09 Other allergy status, other than to drugs and biological substances; Z79.4 Long term (current) use of insulin; Z79.899 Other long term (current) drug therapy; Z80.3 Family history of malignant neoplasm of breast; Z80.8 Family history of malignant neoplasm of other organs or systems; Z82.49 Family history of ischemic heart disease and other diseases of the circulatory system
CPT/HCPCS: 62323; J2250; J1030; J3010; Q9966